=== PATIENT | male | born 1995 | race African-American/Black ===

== ENCOUNTER 2016-07-31 18:32 | Observation (INO) | payer SELFPAY ==
[~2016-07-31] VITALS: Ht 177.8 cm; Wt 54.0 kg
[2016-07-31 19:41] LABS: Basophils # (auto) 0 uL; Basophils % (auto) 0.4 % (0.0-2.0); Eosinophils # (auto) 0.1 uL; Hematocrit 51.2 % (41.0-53.0); Hemoglobin 16.9 g/dL (13.5-17.5); Lymphocytes # (auto) 1.1 uL; Lymphocytes % (auto) 23.5 % (10.0-50.0); Mean Corpuscular Hemoglobin 31.2 pg (28.0-32.0); Mean Corpuscular Volume 94.5 fL (80.0-100.0); Mean Platelet Volume 9.6 fL (7.4-10.4); Monocytes # (auto) 0.5 uL; Monocytes % (auto) 9.9 % (0.0-12.0); Neutrophils % (auto) 64.2 % (37.0-80.0); Platelet Count (auto) 179 10^3/uL (140-450); Red Cell Distribution Width 14.7 % (11.6-16.0); White Blood Cell 4.7 10^3/uL (4.4-10.8)
[2016-07-31 20:00] LABS: Calcium 8.6 mg/dL (8.5-10.1); Chloride 104 mmol/L (98-107); Potassium 3.6 mmol/L (3.5-5.1); Sodium 138 mmol/L (136-145)
[2016-07-31 20:03] LABS: Anion Gap 9 (5-15); Aspartate Aminotransferase 31 U/L (15-37); BUN/Creatinine Ratio 12.5; Blood Urea Nitrogen 13 mg/dL (7-18); Carbon Dioxide 25 mmol/L (21-32); GFR African American 115 mL/min; GFR Non-African American 95 mL/min; Glucose 109 mg/dL (74-106); Magnesium 2.2 mg/dL (1.6-2.6)
[2016-07-31 20:07] LABS: Salicylate < 1.7 mg/dL (2.8-20.0)
[2016-07-31 20:08] LABS: Alkaline Phosphatase 101 U/L (45-117); Bilirubin, Total 0.7 mg/dL (0.2-1.0); Total Protein 7.5 g/dL (6.4-8.2)
[2016-07-31 20:25] LABS: Acetaminophen < 2.0 ug/mL (10-30)
[2016-07-31 20:35] LABS: Urine Bilirubin Negative (Negative); Urine Blood Negative /uL (Negative); Urine Color Yellow (Yellow); Urine Glucose Normal (Normal); Urine Ketone Negative (Negative); Urine Nitrite Negative (Negative); Urine RBC <1 /hpf (0 - 3); Urine Squamous Epithelial Cell FEW /hpf (<5); Urine Urobilinogen Normal (Negative)
[2016-08-01] MEDS ORDERED: HALOPERIDOL 5 MG TAB PO ONE ×2 (05:30→11:15)
[2016-08-01] MEDS ORDERED: LORazepam 0.5 MG TAB PO ONE (20:30)
[2016-08-04 09:10] VITALS: BP 126/88
== END 2016-08-04 14:50 | disposition home or self-care (01) | DRG 313 ==
LOC: ER 18:36 → TELE 18:37 → UNDOADMOB 18:37 → TELE 08-01 02:51 → ER 08-04 14:50 → UNDODISOB 08-04 14:50
PROVIDERS: ADMIT Emergency Medicine; ATTEND Emergency Medicine
DX: R07.9 Chest pain, unspecified (principal)
CPT/HCPCS: 36415; 71020; 80053; 80329; 81001; 83735; 84484; 85025; 93005; 99285; G0378; G0434